=== PATIENT | female | born 1960 | race Caucasian/White ===

== ENCOUNTER 2024-07-31 09:00 | Outpatient (CLI) | payer OTHER, SELFPAY ==
--- NOTE | 2024-07-31 | IMM_PTH ---
PATHOLOGY RESULTS PATIENT: BRITTANY MONTEJO LOC: LAB U#:[id number] AGE/SX: 63/F ROOM: RE07/31/[address]: Dr. Bobo Sethi MD : 1960 BED: DIS: 07/31/2024 SPEC #: [id number] RECD: 07/31/24 15:39 STATUS: JORGE REQ #: [id number] DAVID: 07/31/24 00:[address]: Bobo Sethi DEPT: IMMUNOHISTOCHEMISTRY RECD BY: Nithin Lambert ENTERED: 07/31/24 15:40 SP TYPE: IMMUNO OTHR DR: Dr. Beatriz Mahmood MD Tissues: Neck, NOS Procedures: RCC (add) Thyroglobulin (add) NAPSIN A (add) CD45 (add) CD56 (add) CK20 (add) CK5-6 (add) CK7 (add) CK8 (add) HEP PAR (add) KI-67 (add) MAMM (add) P16 (add) P53 (add) ND (add) TTF1 (add) Vimentin (add) 34BE12 (add) Pankeratin (add) GATA3 (add) P40 (add) ER (initial) NSE (add) S-100 (add) PHYSICIAN & INSTITUTION [place] [id number] SPECIMEN INFORMATION: Tissue Source: Left neck Clinical Info: Left neck mass Specimen Number: [id number] CPT code: 93819, [id number] METHODOLOGY: Deparaffinized sections of prefer/formalin-fixed tissue or PAP/DQ stained slides are incubated with monoclonal/polyclonal antibodies/oligonucleotide probes. Localization is made via biotin free immunoperoxidase method. Appropriate controls are performed and reacted as expected. Results on target cell population are indicated in the following table: RESULTS: ANTIBODY / CLONE RESULT CELLBLOCK ER (6F11) negative ND (1E2) negative Mammaglobin (31A5) negative GATA3 (L50-823) negative AE1-3 (AE1/AE3/PCK26) positive CK7 (OV-TL12/30) negative CK8 (25zeflE10) negative CK20 (KS20.8) negative CD45 (RP2/18) negative Vimentin (V9) negative 34BE12 (34BE12) positive S-100 (4C4.9) negative CD56 (123C3.D5) negative NSE Neuron Specific Enolase negative TTF-1 (8G7G3/1) negative Napsin A (Rabbit Polyclonal) negative HepPar (OCh1E5) negative RCC (PN-15) negative Thyro (2H11+6E1) negative CK5-6 (D5 & 1684) positive P40 (BC28) positive P53 (DO-7) positive, missense type Ki-67 (30-9) positive, moderate P16 (E6H4) negative These tests were developed and their performance characteristics determined by [facility]. They may not have been cleared or approved by the [place]. Food and Drug Administration. The FDA has determined that such clearance or approval is not necessary. The above immunohistochemical/dualISH markers are ordered and reviewed by the Pathologist. 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 Case has been reviewed in consultation with Dr. Benitez who concurs with the above diagnosis. IDC:KUNAL Lujan 08/01/2024
--- NOTE | 2024-07-31 | ASPOS_PTH ---
PATHOLOGY RESULTS PATIENT: BRITTANY MONTEJO LOC: LAB U#:[id number] AGE/SX: 63/F ROOM: RE07/31/[address]: Dr. Bobo Sethi MD : 1960 BED: DIS: 07/31/2024 SPEC #: [id number] RECD: 07/31/24 13:09 STATUS: JORGE REAria #: [id number] DAVID: 07/31/24 00:[address]: Bobo Sethi DEPT: CYTOLOGY RECD BY: Alfonzo Lopez ENTERED: 07/31/24 13:09 SP TYPE: ASP HERE OTHR DR: Dr. 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 See comment. AM.mr 08/01/2024 COMMENT Immunohistochemistry ([id number]) supports the above diagnosis. Case has been reviewed in consultation with Dr. Benitez who concurs with the above diagnosis. IDC:SJ CYTOLOGY STUDY Slides are reviewed. CYTOLOGY GROSS Received is 0.2 ml of yellow-parks labeled with the patient's name, and designated Left neck mass. 6 imprints and 2 paps are made from the submitted fluid and the rest is added to CytoLyt for cell block preparation. Submitted for cytology study. AM. 07/31/2024 TC:0 CPT:97075,20645,82508,88545
--- OUTSIDE RECORDS SUMMARY | 2024-07-31 09:45 | XMS RPT_ITS | CCD ---
Author Organization [facility] Care Team Providers Care Driver Utility Worker Name Role Phone TRINO RESENDEZ Admitting Unavailable TRINO RESENDEZ Attending Unavailable TRINO RESENDEZ Primary Care Unavailable MART DAVENPORT MD Consulting Unavailable PROVIDER, UNKNOWN Consulting Unavailable PROVIDER, UNKNOWN Consulting Unavailable PROVIDER, UNKNOWN Consulting Unavailable MART DAVENPORT MD Consulting Unavailable MART DAVENPORT MD Primary Care Unavailable MART DAVENPORT MD Attending Unavailable MART DAVENPORT MD Admitting Unavailable PROVIDER, UNKNOWN Consulting Unavailable PROVIDER, UNKNOWN Consulting Unavailable PROVIDER, UNKNOWN Consulting Unavailable MART DAVENPORT MD Consulting Unavailable MART DAVENPORT MD Primary Care Unavailable MART DAVENPORT MD Attending Unavailable MART DAVENPORT MD Admitting Unavailable PROVIDER, UNKNOWN Consulting Unavailable PROVIDER, UNKNOWN Consulting Unavailable PROVIDER, UNKNOWN Consulting Unavailable MART DAVENPORT MD Consulting Unavailable JOANNE BERMANS E Primary Care Unavailable DONALD BERMAN Attending Unavailable JOANNE BERMANS E Admitting Unavailable PROVIDER, UNKNOWN Consulting Unavailable PROVIDER, UNKNOWN Consulting Unavailable PROVIDER, UNKNOWN Consulting Unavailable MART DAVENPORT MD Admitting Unavailable MART DAVENPORT MD Attending Unavailable MART DAVENPORT MD Primary Care Unavailable MART DAVENPORT MD Consulting Unavailable PROVIDER, UNKNOWN Consulting Unavailable PROVIDER, UNKNOWN Consulting Unavailable PROVIDER, UNKNOWN Consulting Unavailable TRINO RESENDEZ Admitting Unavailable TRINO RESENDEZ Attending Unavailable TRINO RESENDEZ Primary Care Unavailable MART DAVENPORT MD Consulting Unavailable PROVIDER, UNKNOWN Consulting Unavailable PROVIDER, UNKNOWN Consulting Unavailable PROVIDER, UNKNOWN Consulting Unavailable MART DAVENPORT MD Consulting Unavailable ANTONELLA, ISRA Primary Care Unavailable JOANNE BERMANS E Attending Unavailable DONALD BERMAN E Admitting Unavailable PROVIDER, UNKNOWN Consulting Unavailable PROVIDER, UNKNOWN Consulting Unavailable PROVIDER, UNKNOWN Consulting Unavailable MART DAVENPORT MD Consulting Unavailable MART DAVENPORT MD Primary Care Unavailable MART DAVENPORT MD Attending Unavailable MART DAVENPORT MD Admitting Unavailable PROVIDER, UNKNOWN Consulting Unavailable PROVIDER, UNKNOWN Consulting Unavailable PROVIDER, UNKNOWN Consulting Unavailable MART DAVENPORT MD Consulting Unavailable REID REED CNP Primary Care Unavailable REID REED CNP Attending Unavailable REID REED CNP Admitting Unavailable PROVIDER, UNKNOWN Consulting Unavailable PROVIDER, UNKNOWN Consulting Unavailable PROVIDER, UNKNOWN Consulting Unavailable DONALD BERMAN Referring Unavailable MART DAVENPORT MD Consulting Unavailable GEE NEGRON MD Primary Care Unavailabl GEE Hagan MD Attending Unavailabl e GEE NEGRON MD Admitting Unavailabl e PROVIDER, UNKNOWN Consulting Unavailable PROVIDER, UNKNOWN Consulting Unavailable PROVIDER, UNKNOWN Consulting Unavailable MART DAVENPORT MD Admitting Unavailable MART DAVENPORT MD Attending Unavailable MART DAVENPORT MD Primary Care Unavailable MATR DAVENPORT MD Consulting Unavailable PROVIDER, UNKNOWN Consulting Unavailable PROVIDER, UNKNOWN Consulting Unavailable PROVIDER, UNKNOWN Consulting Unavailable ANTONELLAJOANNE SNYDERS E Primary Care Unavailable JOANNE BERMANS E Attending Unavailable JOANNE BERMANS E Admitting Unavailable MART DAVENPORT MD Consulting Unavailable PROVIDER, UNKNOWN Consulting Unavailable PROVIDER, UNKNOWN Consulting Unavailable PROVIDER, UNKNOWN Consulting Unavailable Allergies Allergy Classification Reported Allergen(s) Allergy Type Date of Onset Reaction(s) Facility (1 source) adalimumab Drug Allergy [facility] Repository (1 source) Etanercept Drug Allergy [facility] Repository Problems Active Problems Problem Classification Problem Date Documented Da te Episodic/Chronic Disorders of lipid metabolism (1 source) Hyperlipidemia, unspecified; Translations: [Hyperlipidemia, unspecified] Onset: 05-29-2024 Chronic Headache; including migraine (3 sources) Headache; including migraine; Translations: [Headache, unspecified] Onset: 06-22-2024 Nutritional deficiencies (1 source) Vitamin D deficiency, unspecified; Translations: [Vitamin D deficiency, unspecified] Onset: 05-29-2024 Chronic Osteoarthritis (3 sources) Unspecified osteoarthritis, unspecified site; Translations: [Unspecified osteoarthritis, unspecified site] Onset: 05-29-2024 Chronic Other acquired deformities (1 source) Postural lordosis, site unspecified; Translations: [Postural lordosis, site unspecified] Onset: 02-11-2024 Chronic Other aftercare (1 source) Other senior care (current) drug therapy; Translations: [Other termite helper (current) drug therapy] Onset: 05-29-2024 Episodic Other screening for suspected conditions (not mental disorders or infectious disease) (4 sources) Other specified abnormal findings of blood chemistry; Translations: [Encounter for screening mammogram for malignant neoplasm of breast] Onset: 02-15-2024 Episodic Other skin disorders (4 sources) Localized swelling, mass and lump, neck; Translations: [Localized swelling, mass and lump, neck] Onset: 06-19-2024 Episodic Spondylosis; intervertebral disc disorders; other back problems (2 sources) Spondylosis without myelopathy or radiculopathy, cervical region; Translations: [Spondylosis without myelopathy or radiculopathy, cervical region] Onset: 02-11-2024 Chronic Past or Other Problems Problem Classification Problem Date Documented Da te Episodic/Chronic Deficiency and other anemia (3 sources) Iron deficiency anemia, unspecified; Translations: [Iron deficiency anemia, unspecified] Onset: 07-22-2023 Episodic Spondylosis; intervertebral disc disorders; other back problems (1 source) Spinal stenosis, cervical region; Translations: [Spinal stenosis, cervical region] Onset: 02-11-2024 Episodic Results Test Name Value Interpretation Reference Range Facil ity BMP with eGFRon 07-10-2024 AGE 63 years Normal [facility] Comment on above: Performed By: #### 2 [id number] #### [facility],[address] [place] [address] Anion gap [Moles/Vol] 10 mmol/L Normal 10 - 20 [facility] Comment on above: Performed By: #### 2 04754 #### [facility],[address] [place], [place] [id number] BMP with eGFR Normal [facility] Comment on above: Result Comment: BASI C METABOLIC PANEL Performed By: #### 2 36678 #### [facility],[address] [place], [place] [phone] Calcium [Mass/Vol] 8.4 mg/dL Low 8.5 - 10.1 [facility] Comment on above: Performed By: #### 2 92136 #### [facility],[address] [place], [place] [phone] Chloride [Moles/Vol] 101 mmol/L Normal 98 - 107 [facility] Comment on above: Performed By: #### 2 88263 #### [facility],[address] [place] [address] 22050 CO2 [Moles/Vol] 29.5 mmol/L Normal 21.0 - 32.0 [facility] Comment on above: Performed By: #### 2 70212 #### [facility],[address] [place], [place] [phone] Creatinine [Mass/Vol] 0.73 mg/dL Normal 0.55 - 1.02 [facility] Comment on above: Performed By: #### 2 00356 #### [facility],[address] [place] [address] GFR/1.73 sq M.predicted among non-blacks MDRD (S/P/Bld) [Vol rate/Area] mL/min/{1.73_m2} Normal 60 - 999 [facility] Comment on above: Performed By: #### 2 17240 #### [facility],[address] [place] [address] Result Comment: ACCO RDING TO THE NATIONAL KIDNEY DISEASE EDUCATION PROGRAM(NKDE), A NORMAL eGFR IS A VALUE GREATER THAN OR EQUAL TO 60 ML/MIN/1.73 SQ METERS. CHRONIC KIDNEY DISEASE: <60mL/MIN/1.73 SQ METERS KIDNEY FAILURE: <15mL/MIN/1.73 SQ METERS THIS TEST SHOULD ONLY BE USED FOR PATIENTS 18 YEARS OF AGE AND OLDER. Glucose [Mass/Vol] 86 mg/dL Normal 74 - 106 [facility] Comment on above: Performed By: #### 2 27726 #### [facility],[address] [place], [place] [phone] Potassium [Moles/Vol] 4.4 mmol/L Normal 3.5 - 5.1 [facility] Comment on above: Performed By: #### 2 45881 #### [facility],[address] [place] [address] 75189 Sodium [Moles/Vol] 136 mmol/L Normal 136 - 145 [facility] Comment on above: Performed By: #### 2 73894 #### [facility],[address] [place] [address] 73216 Urea nitrogen [Mass/Vol] 11 mg/dL Normal 7 - 18 [facility] Comment on above: Performed By: #### 2 84615 #### [facility],[address] [place] [address] NECK W/WO CONTRAST 06-12 CT NECK W/WO CONTRAST [place] [address] Patient: BRITTANY MONTEJO Phone#: : 1960 Age: 63 Gender: F Pt. Type: Out Account: [id number] Location: [place] [facility] Ordering: DONALD BERMAN Exam Date: 06/30/2024/13:47 Family Phys: MART DAVENPORT Charge Code: 669294 Physician: [place] Order #: [id number] Dose#: 9.40 mGy PROCEDURE: CT NECK WITH AND WITHOUT CONTRAST COMPARISON: None. INDICATIONS: Neck mass. TECHNIQUE: After obtaining the patient's consent, CT images were created without and with non- ionic intravenous contrast material. All CT scans at this facility use dose modulation, iterative reconstruction, and/or weight based dosing when appropriate to reduce radiation dose to as low as reasonably achievable. IV CONTRAST: Omnipaque 350,60ml TOTAL DOSE: 9.40 CTDIvol(mGy) FINDINGS: Dental amalgam streak artifact limits evaluation at the involved levels. NASOPHARYNX: Normal. Fossae of Rosenmuller and torus tubarius are symmetric. ORAL CAVITY: Dental amalgam streak artifact limits evaluation, visualized portion is unremarkable. OROPHARYNX: Normal. Faucial and lingual tonsils are symmetric. HYPOPHARYNX: Normal. No mass or other visible lesion. LARYNX: Normal. The vocal cords are symmetric and without mass. SINUSES: Normal. Limited views show no significant fluid or mucosal thickening. NECK GLANDS: Two left thyroid nodules measuring 0.5 cm. The parotid and submandibular glands are unremarkable. LYMPH NODES: There is a left level 5B irregular lymph node measuring 1.4 x 1.6 x 2.3 cm, series 6, image 52. There cluster of small left supraclavicular lymph nodes, series 33, image 34. The largest lymph node measures 0.7 cm. SKULL BASE: Normal. Foramina are symmetric without bony erosion. VASCULATURE: There are atherosclerotic calcifications of the carotid bifurcations. The vertebral artery is dominant. BONES: Reversal of the normal cervical lordosis. Disc height loss at C5-6 and C6-7. Facet fusion at C2 through C5. Degenerative changes at the atlantoaxial interval. OTHER: Normal. No additional imaging findings. CONCLUSION: Continued Report - Page 2 of 2 Patient: BRITTANY MONTEJO. Phone#: : 1960 Age: 63 Gender: F Pt. Type: Out Account: [id number] Location: 052 Ordering: DONALD BERMAN Exam Date: 06/30/2024/13:47 Family Phys: MART DAVENPORT Charge Code: 551120 Physician: [place] Order #: [id number] Dose#: 9.40 mGy 1. Abnormal level 5B lymph node. In a patient with a history of cancer this is concerning for metastatic disease. Recommend further workup. Dictated by: Hue Jimenez MD on 06/30/2024 at 19:15 Approved by: Hue Jimenez MD on 06/30/2024 at 19:29 Normal [facility] MR MRI BRAIN W/WO CONTRASTon 06-22-2024 MR MRI BRAIN W/WO CONTRAST [place] [address] Patient: BRITTANY MONTEJO Phone#: : 1960 Age: 63 Gender: F Pt. Type: Out Account: [id number] Location: 052 Ordering: MART DAVENPORT Exam Date: 06/22/2024/10:36 Family Phys: Charge Code: [id number] Physician: [place] Order #: [id number] Dose#: PROCEDURE: MRI BRAIN WITH AND WITHOUT CONTRAST COMPARISON: None. INDICATIONS: MIXED ALLISON TECHNIQUE: A variety of imaging planes and parameters were utilized for visualization of suspected pathology. Images were performed without and with gadolinium contrast. FINDINGS: CEREBRUM: Few scattered periventricular foci of abnormal signal are seen on FLAIR imaging. These findings are nonspecific and may be on the basis of previous infectious or inflammatory process or demyelinating disease. The number foci are greater than expected for patient age. CEREBELLUM: No edema, hemorrhage, mass, acute infarction, or inappropriate atrophy. BRAINSTEM: No edema, hemorrhage, mass, acute infarction, or inappropriate atrophy. CSF SPACES: Ventricles, cisterns, and sulci are appropriate for age. No hydrocephalus, subarachnoid hemorrhage, or mass. SKULL: No mass or other significant visible lesion. SINUSES: Limited views demonstrate no significant mucosal thickening or fluid. ORBITS: Limited views are unremarkable. OTHER: No abnormal meningeal or parenchymal enhancement. CONCLUSION: 1. Scattered foci of abnormal signal on FLAIR imaging and are nonspecific. Number foci however are greater than expected for patient age. Correlate with possible demyelinating process. Dictated by: Janis Goldman MD on 06/22/2024 at 14:51 Approved by: Janis Goldman MD on 06/22/2024 at 14:59 Normal [facility] CREATININEon 06-19-2024 Creatinine [Mass/Vol] 0.95 mg/dL Normal 0.55 - 1.02 [facility] Comment on above: Performed By: #### 2 89091 #### [facility],[address] [place] [address] US SOFT TISSUE NECK/HEADon 0 06-19-2024 SOFT TISSUE NECK/HEAD [place] [address] Patient: BRITTANY MONTEJO Phone#: : 1960 Age: 63 Gender: F Pt. Type: Out Account: [id number] Location: [facility] Ordering: DONALD BERMAN Exam Date: 06/19/2024/15:04 Family Phys: MART DAVENPORT Charge Code: [id number] Physician: GEE NEGRON [place] Order #: [id number] Dose#: PROCEDURE: SOFT TISSUE NECK/HEAD COMPARISON: [facility], MR, CERVICAL SPINE W/O CON, 02/11/2024, 10:58. INDICATIONS: Left neck mass TECHNIQUE: Sonography was performed of the clinically requested area of interest. FINDINGS: REGION IMAGED: Neck MASSES: Bilobed versus 2 juxtaposed nodules are present at the site of palpable abnormality. Total dimension is 17 by 14 x 13 millimeters. Mass is hypoattenuating with through transmission. Scattered low-level echoes are present within the mass. Possibility of necrotic node versus cystic lesion with debris is raised. There is no significant associated hypervascularity. There are a few nonspecific lymph nodes identified. Further evaluation by CT without and with is recommended. FLUID COLLECTIONS: None. No abnormal fluid collection. OTHER: Negative. CONCLUSION: 1. BILOBED VERSUS 2 JUXTAPOSED HYPOECHOIC MASS AT THE LEFT NECK BASE IS PRESENT. POSSIBILITY OF NECROTIC MASS VERSUS CYSTIC MASS WITH DEBRIS IS RAISED. FURTHER EVALUATION BY CT WITHOUT AND WITH CONTRAST IS RECOMMENDED. Dictated by: Janis Goldman MD on 06/19/2024 at 17:15 Approved by: Janis Goldman MD on 06/19/2024 at 17:37 Normal [facility] CBC + DIFFon 05-29-2024 Baso # 0.03 x10EE3/UL Normal 0.00 - 0.10 [facility] [facility] Comment on above: Performed By: #### 2 14079 #### [facility],[address] [place] [address] Basophils/100 WBC (Bld) 0.1 % Normal 0.0 - 2.0 [facility] Comment on above: Performed By: #### 2 75596 #### [place] [address] CBC + DIFF Normal [facility] Comment on above: Result Comment: CBC- COMPLETE BLOOD COUNT Performed By: #### 2 29352 #### [place] [address] CELL COUNT 100 Normal [facility] Comment on above: Performed By: #### 2 32331 #### [facility],[address] [place] [address]806 EO # 0.07 x10EE3/UL Normal 0.00 - 0.50 [facility] Comment on above: Performed By: #### 2 22192 #### [facility],[address] [place], [place] [phone] Eosinophils/100 WBC (Bld) 0.3 % Normal 0.0 - 7.0 [facility] Comment on above: Performed By: #### 2 66791 #### [facility],[address] [place] [address] Erythrocyte distribution width (RBC) [Ratio] 15.8 % High 12.0 - 15.6 [facility] Comment on above: Performed By: #### 2 52401 #### [facility],[address] [place] [address] Hematocrit (Bld) [Volume fraction] 37.5 % Normal 34.0 - 46.0 [facility] Comment on above: Performed By: #### 2 29385 #### [facility],[address] [place], [place] [phone] Hemoglobin (Bld) [Mass/Vol] 11.9 g/dL Low 12.0 - 16.0 [facility] Comment on above: Performed By: #### 2 36574 #### [facility],[address] [place], [place] [phone] Lymph # 1.04 x10EE3/UL Normal 0.80 - 2.80 [facility] Comment on above: Performed By: #### 2 82030 #### [facility],[address] [place], [place] [phone] Lymphocytes/100 WBC (Bld) 4.3 % Low 20.0 - 45.0 [facility] Comment on above: Performed By: #### 2 15473 #### [facility],[address] [place] [address] Lymphocytes/100 WBC (Bld) 3 % Low 20 - 45 [facility] Comment on above: Performed By: #### 2 97018 #### [facility],[address] [place] [address] MANUAL DIFF SEE BELOW Normal [facility] Comment on above: Performed By: #### 2 39630 #### [facility],[address] [place] [address] MCH (RBC) [Entitic mass] 26 pg Low 27 - 33 [facility] Comment on above: Performed By: #### 2 63005 #### [facility],[address] [place] [address] MCHC 32 X10 3 Normal 32 - 36 [facility] Comment on above: Performed By: #### 2 56304 #### [facility],[address] [place] [address] MCV (RBC) [Entitic vol] 81 fL Normal 80 - 99 [facility] Comment on above: Performed By: #### 2 22650 #### [facility],[address] [place] [address] [place] # 0.32 x10EE3/UL Normal 0.20 - 1.00 [facility] Comment on above: Performed By: #### 2 70031 #### [facility],[address] [place] [address] MONOS 1 % Normal 0 - 10 [facility] Comment on above: Performed By: #### 2 87582 #### [facility],[address] [place] [address] MONOS % 1.3 % Normal 0.0 - 10.0 [facility] Comment on above: Performed By: #### 2 18736 #### [facility],[address] [place] [address] Morphology Eduar (Bld) [Interp] REVIEWED Normal [facility] Comment on above: Performed By: #### 2 03483 #### [facility],[address] [place] [address] 62738 Neut # 22.67 x10EE3/UL High 1.50 - 7.10 [facility] Comment on above: Performed By: #### 2 81082 #### [facility],[address] [place] [address] 78323 Neutrophils/100 WBC (Bld) 93.9 % High 46.0 - 76.0 [facility] Comment on above: Performed By: #### 2 00631 #### [facility],[address] [place] [address] 04435 PLATELET 352 x10EE3/UL Normal 150 - 450 [facility] Comment on above: Performed By: #### 2 05203 #### [facility],[address] [place] [address] 25870 Platelet mean volume (Bld) [Entitic vol] 7.8 fL Normal 6.6 - 10.5 [facility] Comment on above: Result Comment: AUTO MATED DIFFERENTIAL Performed By: #### 2 06971 #### [facility],[address] [place] [address] 71721 RBC 4.65 x 10EE6/UL Normal 4.10 - 5.30 [facility] Comment on above: Performed By: #### 2 85807 #### [facility],[address] [place] [address] 23090 SEGS 96 % High 46 - 76 [facility] Comment on above: Performed By: #### 2 74392 #### [facility],[address] [place] [address] 69243 WBC 24.1 x 10EE3/UL High 4.5 - 10.8 [facility] Comment on above: Performed By: #### 2 86045 #### [facility],[address] [place] [address] 40830 CMP with eGFRon 05-29-2024 AGE 63 years Normal [facility] Comment on above: Performed By: #### 2 04571 #### [facility],[address] [place] [address] 00108 Albumin [Mass/Vol] 2.8 g/dL Low 3.4 - 5.0 [facility] Comment on above: Performed By: #### 2 40998 #### [facility],[address] [place] [address] 42267 Albumin/Globulin [Mass ratio] 0.8 {ratio} Low 0.9 - 1.6 [facility] Comment on above: Performed By: #### 2 27820 #### [facility],[address] [place] [address] 52432 ALK PHOS 99 U/L Normal 46 - 116 [facility] Comment on above: Performed By: #### 2 74314 #### [facility],[address] [place] [address] 61958 ALT [Catalytic activity/Vol] 14 U/L Low 16 - 63 [facility] Comment on above: Performed By: #### 2 17675 #### [facility],[address] [place] [address] 72822 Anion gap [Moles/Vol] 12 mmol/L Normal 10 - 20 [facility] Comment on above: Performed By: #### 2 05392 #### [facility],[address] [place] [address] 55549 AST [Catalytic activity/Vol] 23 U/L Normal 13 - 39 [facility] Comment on above: Performed By: #### 2 29962 #### [facility],[address] [place] [address] 09782 B/C RATIO 18 ratio Normal 0 - 30 [facility] Comment on above: Performed By: #### 2 12003 #### [facility],[address] [place] [address] 71743 Bilirubin [Mass/Vol] 0.3 mg/dL Normal 0.2 - 1.0 [facility] Comment on above: Performed By: #### 2 89411 #### [facility],[address] [place], [place] [phone] Calcium [Mass/Vol] 8.8 mg/dL Normal 8.5 - 10.1 [facility] Comment on above: Performed By: #### 2 27995 #### [facility],[address] [place], [place] [phone] Chloride [Moles/Vol] 100 mmol/L Normal 98 - 107 [facility] Comment on above: Performed By: #### 2 01587 #### [facility],[address] [place], [place] [phone] CMP with eGFR Normal [facility] Comment on above: Result Comment: COMP REHENSIVE METABOLIC PANEL Performed By: #### 2 71863 #### [facility],[address] [place] [address] CO2 [Moles/Vol] 29.6 mmol/L Normal 21.0 - 32.0 [facility] Comment on above: Performed By: #### 2 26685 #### [facility],[address] [place], [place] [phone] Creatinine [Mass/Vol] 0.73 mg/dL Normal 0.55 - 1.02 [facility] Comment on above: Performed By: #### 2 51666 #### [facility],[address] [place] [address] GFR/1.73 sq M.predicted among non-blacks MDRD (S/P/Bld) [Vol rate/Area] mL/min/{1.73_m2} Normal 60 - 999 [facility] Comment on above: Performed By: #### 2 04358 #### [facility],[address] [place] [address] Result Comment: ACCO RDING TO THE NATIONAL KIDNEY DISEASE EDUCATION PROGRAM(NKDE), A NORMAL eGFR IS A VALUE GREATER THAN OR EQUAL TO 60 ML/MIN/1.73 SQ METERS. CHRONIC KIDNEY DISEASE: <60mL/MIN/1.73 SQ METERS KIDNEY FAILURE: <15mL/MIN/1.73 SQ METERS THIS TEST SHOULD ONLY BE USED FOR PATIENTS 18 YEARS OF AGE AND OLDER. Globulin (S) [Mass/Vol] 3.6 g/dL Normal 1.5 - 3.8 [facility] Comment on above: Performed By: #### 2 94122 #### [facility],[address] [place] [address] 63824 Glucose [Mass/Vol] 99 mg/dL Normal 74 - 106 [facility] Comment on above: Performed By: #### 2 66925 #### [facility],[address] [place] [address] 52608 Potassium [Moles/Vol] 3.8 mmol/L Normal 3.5 - 5.1 [facility] Comment on above: Performed By: #### 2 65333 #### [facility],[address] [place] [address] 27009 Protein [Mass/Vol] 6.4 g/dL Normal 6.4 - 8.2 [facility] Comment on above: Performed By: #### 2 65980 #### [facility],[address] [place] [address] 23908 Sodium [Moles/Vol] 138 mmol/L Normal 136 - 145 [facility] Comment on above: Performed By: #### 2 74339 #### [facility],[address] [place] [address] 62147 Urea nitrogen [Mass/Vol] 13 mg/dL Normal 7 - 18 [facility] Comment on above: Performed By: #### 2 20022 #### [facility],[address] [place] [address] 28921 HEMOGLOBIN A1C (POM)on 05-29 Glucose [Mass/Vol] 116.9 mg/dL High 0.0 - 0.0 [facility] Comment on above: Result Comment: BLDo HEMOGLOBIN A1C REFERENCE RANGESBLDo Suggested Diagnosis HbA1c(%) HbA1C (mmol/mol Diabetic >/=6.5 >/=48 Prediabetes 5.7 - 6.4 39 - 47 Normal <5.7 <39 Performed By: #### 2 94766 #### [facility],[address] [place] [address] 79359 HbA1c (Bld) [Mass fraction] 5.7 % Normal 0.0 - 6.5 [facility] Comment on above: Performed By: #### 2 87327 #### [facility],[address] [place] [address] 33783 LIPID PROFILEon 05-29-2024 Cholesterol [Mass/Vol] 146 mg/dL Normal 0 - 240 [facility] Comment on above: Performed By: #### 2 72405 #### [facility],[address] [place] [address] 51539 Cholesterol in HDL [Mass/Vol] 34 mg/dL Low 40 - 60 [facility] Comment on above: Performed By: #### 2 16605 #### [facility],[address] [place] [address] 58618 Cholesterol in LDL [Mass/Vol] 95 mg/dL Normal 0 - 129 [facility] Comment on above: Performed By: #### 2 45254 #### [facility],[address] [place] [address] 63023 Cholesterol.total/C holesterol in HDL [Mass ratio] 4.3 {ratio} Normal 0.0 - 5.0 [facility] Comment on above: Performed By: #### 2 84785 #### [facility],[address] [place] [address] 45593 Lipid 1996 panel Normal [facility] Comment on above: Result Comment: LIPI D PROFILE Performed By: #### 2 14148 #### [facility],[address] [place] [address] 48654 Triglyceride [Mass/Vol] 85 mg/dL Normal 0 - 150 [facility] Comment on above: Performed By: #### 2 02543 #### [facility],[address] [place] [address] 09928 MAGNESIUMon 05-29-2024 Magnesium [Mass/Vol] 2.1 mg/dL Normal 1.8 - 2.4 [facility] Comment on above: Performed By: #### 2 98718 #### [facility],[address] [place] [address] T4-FREE (FREE THYROXINE)on 0 05-29-2024 Free T4 [Mass/Vol] 1.12 ng/dL Normal 0.76 - 1.46 [facility] Comment on above: Result Comment: P otential of falsely elevated results when biotin concentrations are > 10 ng/mL. Performed By: #### 2 34902 #### [facility],[address] [place], [place] [address] TSHon 05-29-2024 TSH Qn 2.32 m[IU]/L Normal 0.35 - 3.74 [facility] Comment on above: Performed By: #### 2 13925 #### [facility],[address] [place] [address] 00307 URINALYSISon 05-29-2024 Amorphous NONE Normal [facility] Comment on above: Performed By: #### 2 95698 #### [facility],[address] [place] [address] 14102 Bacteria 2+ Normal [facility] Comment on above: Performed By: #### 2 65062 #### [facility],[address] [place] [address] 48164 Bilirubin Ql (U) Negative Normal NORMAL: NEGATIVE [facility] Comment on above: Performed By: #### 2 17484 #### [facility],[address] [place] [address] 51526 Casts NONE Normal [facility] Comment on above: Performed By: #### 2 74964 #### [facility],[address] [place] [address] 80889 Clarity (U) clear Normal NORMAL: CLEAR [facility] Comment on above: Performed By: #### 2 06948 #### [facility],[address] [place] [address] 65263 Color (U) yellow Normal NORMAL: YELLOW [facility] Comment on above: Performed By: #### 2 03014 #### [facility],[address] [place] [address] 74773 Crystals LM Nom (Urine sed) NONE Normal [facility] Comment on above: Performed By: #### 2 76469 #### [facility],[address] [place] [address] 23203 Epi Cells MODERATE Normal [facility] Comment on above: Performed By: #### 2 48813 #### [facility],[address] [place] [address] 27494 Glucose Ql (U) NORM Normal NORMAL: NORMAL [facility] Comment on above: Performed By: #### 2 91160 #### [facility],[address] [place] [address] 76955 Hemoglobin Ql (U) 10 Abnormal NORMAL: NEGATIVE [facility] Comment on above: Performed By: #### 2 93506 #### [facility],[address] [place] [address] 25384 Ketone Negative Normal NORMAL: NEGATIVE [facility] Comment on above: Performed By: #### 2 85286 #### [facility],[address] [place] [address] 30500 Leukocytes Negative Normal NORMAL: NEGATIVE [facility] Comment on above: Performed By: #### 2 63899 #### [facility],[address] [place] [address] 71460 Mucous NONE Normal [facility] Comment on above: Performed By: #### 2 42152 #### [facility],[address] [place] [address] 42329 Nitrite Ql (U) Negative Normal NORMAL: NEGATIVE [facility] Comment on above: Performed By: #### 2 84171 #### [facility],[address] [place] [address] 25531 pH (U) 6 [pH] Normal NORMAL: 5.0-8.0 [facility] Comment on above: Performed By: #### 2 39583 #### [facility],[address] [place] [address] 00227 Protein Ql (U) 15 Abnormal NORMAL: NEGATIVE [facility] Comment on above: Performed By: #### 2 06769 #### [facility],[address] [place] [address] 47781 Rbc 0-5 Normal 0-3/hpf [facility] Comment on above: Performed By: #### 2 91281 #### [facility],[address] [place] [address] Sp [place] 1.010 Normal NORMAL: 1.010-1.030 [facility] Comment on above: Performed By: #### 2 48858 #### [facility],[address] [place] [address] 50834 Specimen Type R Normal [facility] Comment on above: Performed By: #### 2 04441 #### [facility],[address] [place] [address] 31074 Urinalysis dipstick W Reflex Microscopic panel (U) SEE BELOW Normal [facility] Comment on above: Result Comment: MICR OSCOPIC Performed By: #### 2 51955 #### [facility],[address] [place] [address] 19323 Urobilinog NORM Normal NORMAL: NORMAL [facility] Comment on above: Performed By: #### 2 53211 #### [facility],[address] [place] [address] 17456 Wbc 1-5 Normal 0-5/hpf [facility] Comment on above: Performed By: #### 2 95233 #### [facility],[address] [place] [address] 54077 Yeast NONE Normal [facility] Comment on above: Performed By: #### 2 20205 #### [facility],[address] [place] [address] 49950 VITAMIN B-12on 05-29-2024 Cobalamin (Vitamin B12) [Mass/Vol] 1797 pg/mL High 193 - 986 [facility] Comment on above: Performed By: #### 2 64765 #### [facility],[address] [place] [address] 54006 VITAMIN D, 25 HYDROXYon 05-11 VitD 26.50 ng/mL Low 30.00 - 100 [facility] Comment on above: Result Comment: 25-O HD3 indicates both endogenous production and supplementation. 25-OHD2 is an indicator of exogenous sources, such as diet or supplementation. Therapy is based on measurement of Total 25-OHD, with levels <20 ng/mL indicative of Vitamin D deficiency, while levels between 20 ng/mL and 30 ng/mL suggest insufficiency. Optimal levels are >=30ng/mL. Vitamin D, 25-OH D3 Not Established Vitamin D, 25-OH D2 Not Established Performed By: #### 2 96881 #### [facility],[address] [place] [address] 04778 C-REACTIVE PROTEINon 024 CRP 7.48 mg/dl High 0.00 - 0.90 [facility] Comment on above: Performed By: #### 2 90540 #### [facility],[address] [place] [address] 18641 CBC + DIFFon 05-09-2024 Baso # 0.04 x10EE3/UL Normal 0.00 - 0.10 [facility] Comment on above: Performed By: #### 2 11193 #### [facility],[address] [place] [address] 96337 Basophils/100 WBC (Bld) 0.2 % Normal 0.0 - 2.0 [facility] Comment on above: Performed By: #### 2 86381 #### [facility],[address] [place] [address] 19924 CBC + DIFF Normal [facility] Comment on above: Result Comment: CBC- COMPLETE BLOOD COUNT Performed By: #### 2 65084 #### [facility],[address] [place] [address] 50723 EO # 0.09 x10EE3/UL Normal 0.00 - 0.50 [facility] Comment on above: Performed By: #### 2 15049 #### [facility],[address] [place] [address] 14730 Eosinophils/100 WBC (Bld) 0.5 % Normal 0.0 - 7.0 [facility] Comment on above: Performed By: #### 2 82795 #### [facility],[address] [place] [address] Erythrocyte distribution width (RBC) [Ratio] 16.2 % High 12.0 - 15.6 [facility] Comment on above: Performed By: #### 2 13257 #### [facility],[address] [place], [place] [address] Hematocrit (Bld) [Volume fraction] 41.0 % Normal 34.0 - 46.0 [facility] Comment on above: Performed By: #### 2 27381 #### [facility],[address] [place] [address] 67047 Hemoglobin (Bld) [Mass/Vol] 13.3 g/dL Normal 12.0 - 16.0 [facility] Comment on above: Performed By: #### 2 67751 #### [facility],[address] [place] [address] 08759 Lymph # 1.50 x10EE3/UL Normal 0.80 - 2.80 [facility] Comment on above: Performed By: #### 2 17557 #### [facility],[address] [place] [address] 58535 Lymphocytes/100 WBC (Bld) 8.0 % Low 20.0 - 45.0 [facility] Comment on above: Performed By: #### 2 24729 #### [facility],[address] [place] [address] MANUAL DIFF N/A Normal [facility] Comment on above: Performed By: #### 2 14549 #### [facility],[address] [place] [address] MCH (RBC) [Entitic mass] 26 pg Low 27 - 33 [facility] Comment on above: Performed By: #### 2 27306 #### [facility],[address] [place] [address] MCHC 32 X10 3 Normal 32 - 36 [facility] Comment on above: Performed By: #### 2 23029 #### [place] [address] MCV (RBC) [Entitic vol] 81 fL Normal 80 - 99 [facility] Comment on above: Performed By: #### 2 06852 #### [place] [address] [place] # 0.19 x10EE3/UL Low 0.20 - 1.00 [facility] Comment on above: Performed By: #### 2 39207 #### [facility],[address] [place] [address] MONOS % 1.0 % Normal 0.0 - 10.0 [facility] Comment on above: Performed By: #### 2 56430 #### [address] [address] Morphology Eduar (Bld) [Interp] N/A Normal [facility] Comment on above: Performed By: #### 2 06531 #### [facility],[address] [place] [address] Neut # 17.09 x10EE3/UL High 1.50 - 7.10 [facility] Comment on above: Performed By: #### 2 36611 #### [facility],[address] [place] [address] 59319 Neutrophils/100 WBC (Bld) 90.3 % High 46.0 - 76.0 [facility] Comment on above: Performed By: #### 2 97256 #### [facility],[address] [place] [address] 05138 PLATELET 376 x10EE3/UL Normal 150 - 450 [facility] Comment on above: Performed By: #### 2 31402 #### [facility],[address] [place] [address] 77059 Platelet mean volume (Bld) [Entitic vol] 7.9 fL Normal 6.6 - 10.5 [facility] Comment on above: Result Comment: AUTO MATED DIFFERENTIAL Performed By: #### 2 71312 #### [facility],[address] [place], [place] [address] RBC 5.07 x 10EE6/UL Normal 4.10 - 5.30 [facility] Comment on above: Performed By: #### 2 46021 #### [facility],[address] [place] [address] 86360 WBC 18.9 x 10EE3/UL High 4.5 - 10.8 [facility] Comment on above: Performed By: #### 2 54917 #### [facility],[address] [place] [address] 86501 SEDRATEon 05-09-2024 SEDRATE 28 mm/hr Normal 0 - 30 [facility] Comment on above: Performed By: #### 2 86283 #### [facility],[address] [place] [address] 21243 3D MAMM BILAT SCREENon 02-14 3D MAMM BILAT SCREEN [place] [address] Patient: BRITTANY MONTEJO Phone#: : 1960 Age: 63 Gender: F Pt. Type: Out Account: [id number] Location: 052 Ordering: MART ISSAC Exam Date: 02/15/2024/9:02 Family Phys: Charge Code: [id number] Physician: [place] Order #: [id number] Dose#: PROCEDURE: BILATERAL SCREENING BREAST TOMOSYNTHESIS MAMMOGRAM WITH CAD COMPARISON: [facility], BILAT SCREENING, 12/23/2020, 15:30. [facility], 3D BILAT SCREEN, 01/12/2022, 15:15. INDICATIONS: Screening BREAST COMPOSITION: Extremely dense, which lowers the sensitivity of mammography. FINDINGS: DIAGNOSTIC CATEGORY 1--NEGATIVE NO CHANGE FROM COMPARISON ASSESSMENT. RIGHT BREAST: No significant suspicious finding. No significant change has occurred. LEFT BREAST: No significant suspicious finding. No significant change has occurred. Dense vascular calcification is present bilaterally. RECOMMENDATIONS: ROUTINE MAMMOGRAM AND CLINICAL EVALUATION IN 12 MONTHS. PLEASE NOTE: A NORMAL MAMMOGRAM DOES NOT EXCLUDE THE POSSIBILITY OF BREAST CANCER. A CLINICALLY SUSPICIOUS PALPABLE LUMP SHOULD BE BIOPSIED. THIS FACILITY UTILIZES A REMINDER SYSTEM TO ENSURE THAT ALL PATIENTS RECEIVE REMINDER LETTERS FOR APPOINTMENTS. THIS INCLUDES REMINDERS FOR ROUTINE MAMMOGRAMS, DIAGNOSITC MAMMOGRAMS, OR OTHER BREAST IMAGING INTERVENTIONS WHEN APPROPRIATE. THIS PATIENT WILL BE PLACED IN THE APPROPRIATE REMINDER SYSTEM. Dictated by: Janis Goldman MD on 02/15/2024 at 17:22 Approved by: Janis Goldman MD on 02/15/2024 at 17:25 Normal [facility] CERVICAL SP AP LAT, 3 VIEWS OR LESSon 02-11-2024 CERVICAL SP AP LAT, 3 VIEWS OR LESS [place] [address] Patient: BRITTANY MONTEJO Phone#: : 1960 Age: 63 Gender: F Pt. Type: Out Account: [id number] Location: 052 Ordering: TRINO RESENDEZ Exam Date: 02/11/2024/10:37 Family Phys: MART DAVENPORT Charge Code: [id number] Physician: [place] Order #: [id number] Dose#: PROCEDURE: X-RAY CERVICAL SPINE AP/LAT 2 VIEWS COMPARISON: [facility], XR, CERVICAL SP AP LAT OR 2V, 01/28/2024, 12:18. INDICATIONS: Cervical spondylosis. FINDINGS: BONES: There is straightening of the normal cervical lordosis. Multilevel degenerative changes present. DISC SPACES: Disc space narrowing is present at the C5-6 C6-7 and C7-T1 levels. PARASPINOUS: Negative. No paraspinous abnormality is seen. OTHER: Negative. CONCLUSION: 1. Multilevel degenerative change. There is no evidence of subluxation. Dictated by: Janis Goldman MD on 02/11/2024 at 11:58 Approved by: Janis Goldman MD on 02/11/2024 at 12:07 Normal [facility] MR CERVICAL SP WO CONTRASTon 02-11-2024 MR CERVICAL SP WO CONTRAST [place] [address] Patient: BRITTANY MONTEJO Phone#: : 1960 Age: 63 Gender: F Pt. Type: Out Account: [id number] Location: [facility] Ordering: TRINO RESENDEZ Exam Date: 02/11/2024/10:58 Family Phys: MART DAVENPORT Charge Code: [id number] Physician: [place] Order #: [id number] Dose#: PROCEDURE: MRI CERVICAL SPINE WITHOUT CONTRAST COMPARISON: None. INDICATIONS: Spondylosis TECHNIQUE: A variety of imaging planes and parameters were utilized for visualization of suspected pathology. FINDINGS: CRANIOCERVICAL AREA: Normal foramen magnum with no Chiari malformation. PARASPINAL AREA: Normal with no visible mass. BONES: There is straightening of the normal cervical lordosis. CORD: Normal caliber, contour, and signal intensity. CERVICAL DISC LEVELS: C2-C3: No significant disc/facet abnormality, spinal stenosis, or foraminal stenosis. C3-C4: There is bony hypertrophy at the articular facettes. There is mild bilateral foraminal narrowing. C4-C5: Bony hypertrophy is present at the articular facettes. There is moderate to severe narrowing of the right neural foramen. There is moderate narrowing of the left neural foramen. The spinal canal is patent. C5-C6: Bony hypertrophy is present the articular facettes. Endplate osteophyte is present. There is mild to moderate narrowing the right neural foramen. There is severe narrowing of the left neural foramen. Disc space narrowing is present. Broad-based central bulging is present posteriorly with impression on the thecal sac. C6-C7: Osteophytes are present. Bony hypertrophy is present. There is severe narrowing of the foramina bilaterally. C7-T1: No significant disc/facet abnormality, spinal stenosis, or foraminal stenosis. CONCLUSION: 1. There is straightening of the normal cervical lordosis. 2. Multilevel degenerative changes present. Right-sided foraminal impingement is most marked at C4-5 and C6-7. 3. Left-sided foraminal narrowing is most marked at C5-6 and C6-7. Dictated by: Janis Goldman MD on 02/14/2024 at 19:34 Continued Report - Page 2 of 2 Patient: BRITTANY MONTEJO Phone#: : 1960 Age: 63 Gender: F Pt. Type: Out Account: [id number] Location: 052 Ordering: TRINO RESENDEZ Exam Date: 02/11/2024/10:58 Family Phys: MART DAVENPORT Charge Code: [id number] Physician: [place] Order #: [id number] Dose#: Approved by: Janis Goldman MD on 02/14/2024 at 19:41 Normal [facility] CERVICAL SP AP LAT, 3 VIEWS OR LESSon 01-28-2024 CERVICAL SP AP LAT, 3 VIEWS OR LESS [place] [address] Patient: GUSTABO BRITTANY A. Phone#: : 1960 Age: 63 Gender: F Pt. Type: Out Account: [id number] Location: 052 Ordering: TRINO RESENDEZ Exam Date: 01/28/2024/12:18 Family Phys: MART DAVENPORT Charge Code: [id number] Physician: [place] Order #: [id number] Dose#: PROCEDURE: X-RAY CERVICAL SPINE AP/LAT 2 VIEWS COMPARISON: None. INDICATIONS: Rheumatoid arthritis FINDINGS: BONES: There is straightening of the normal cervical lordosis. DISC SPACES: Disc space narrowing is present at multiple levels. PARASPINOUS: Negative. No paraspinous abnormality is seen. OTHER: Negative. CONCLUSION: 1. Multilevel degenerative change. There is no evidence of acute fracture or subluxation. Dictated by: Janis Goldman MD on 01/28/2024 at 17:22 Approved by: Janis Goldman MD on 01/28/2024 at 17:24 Normal [facility] DORSAL SPINE 2 VIEWSon 01-27 DORSAL SPINE [address] [address] Patient: BRITTANY MONTEJO Phone#: : 1960 Age: 63 Gender: F Pt. Type: Out Account: [id number] Location: [facility] Ordering: TRINO RESENDEZ Exam Date: 01/28/2024/12:26 Family Phys: MART DAIGLEFRED Charge Code: [id number] Physician: [place] Order #: [id number] Dose#: PROCEDURE: X-RAY DORSAL SPINE 2 VIEWS COMPARISON: None. INDICATIONS: Rheumatoid arthritis FINDINGS: BONES: No significant spondylosis, scoliosis, fracture, or visible bony lesion. There is mild curvature of the thoracolumbar spine to the left. DISC SPACES: Normal. No significant disc height narrowing, subluxation, or endplate abnormality. PARASPINOUS: Negative. No paraspinous abnormality is seen. OTHER: Negative. CONCLUSION: 1. Mild curvature of the spine to the left. 2. There is no evidence of acute fracture or subluxation. Dictated by: Janis Goldman MD on 01/28/2024 at 17:25 Approved by: Janis Goldman MD on 01/28/2024 at 17:26 Normal [facility] LUMBO SACRAL AP LATon 2023 LUMBO SACRAL AP LAT [address] [address] Patient: BRITTANY MONTEJO Phone#: : 1960 Age: 63 Gender: F Pt. Type: Out Account: [id number] Location: 052 Ordering: TRINO RESENDEZ Exam Date: 01/28/2024/12:26 Family Phys: MART DAVENPORT Charge Code: [id number] Physician: [place] Order #: [id number] Dose#: P mild degenerative changes of the spine are present. ROCEDURE: X-RAY LUMBAR SPINE AP/LAT 2 VIEWS COMPARISON: None. INDICATIONS: Cervicalgia. FINDINGS: BONES: Mild degenerative changes of the spine are present. There is no evidence of acute fracture or subluxation. DISC SPACES: Normal. No significant disc height narrowing, subluxation, or endplate abnormality. PARASPINOUS: Negative. No paraspinous abnormality is seen. OTHER: Negative. CONCLUSION: 1. Dictated by: Janis Goldman MD on 01/28/2024 at 17:27 Approved by: Janis Goldman MD on 01/28/2024 at 17:29 Normal [facility] CV CAROTID STUDYon CV CAROTID STUDY [place] [address] Patient: BRITTANY MONTEJO Phone#: : 1960 Age: 63 Gender: F Pt. Type: Out Account: [id number] Location: 052 Ordering: MART ISSAC Exam Date: 12/02/2023/13:48 Family Phys: Charge Code: [id number] Physician: [place] Order #: [id number] Dose#: PROCEDURE: CAROTID FLOW STUDY COMPARISON: None. INDICATIONS: DIZZINESS TECHNIQUE: Color duplex Doppler ultrasound and pulsed Doppler analysis were performed to evaluate the cervical carotid arteries and vertebral flow. All measurements for carotid artery narrowing or stenosis were obtained using the ipsilateral distal internal carotid artery as the reference value. TOBACCO SORTER: REJI PT HISTORY: Vertigo/dizziness RIGHT IMAGING FINDINGS: CCA: Intimal wall thickening is present. ICA: Intimal wall thickening present. ECA: Intimal wall thickening is present. Vertebral A: Antegrade flow Comments: Category: II. Less than 50% stenosis. ICA PSV less than 180cm/s. Plaque and/or intimal thickening present. LEFT IMAGING FINDINGS: CCA: Intimal wall thickening is present. ICA: Intimal wall thickening present. ECA: Intimal wall thickening is present. Vertebral A: Antegrade flow. Comments: Category: II Less than 50% stenosis. ICA PSV less than 180cm/s. Plaque and/or intimal thickening present. RIGHT VELOCITY RECORDINGS Prox CCA: 85.87 cm/s Prox CCA EDV: 12.79 cm/s Mid CCA: 75.24 cm/s Mid CCA EDV: 12.93 cm/s Distal CCA: 73.29 cm/s Distal CCA EDV: 16.56 cm/s ECA: 89.85 cm/s ECA EDV: 8.93 cm/s Prox ICA: 67.52 cm/s Prox ICA EDV: 18.23 cm/s Continued Report - Page 2 of 2 Patient: BRITTANY MONTEJOHerber Phone#: : 1960 Age: 63 Gender: F Pt. Type: Out Account: [id number] Location: [facility] Ordering: MART DAVENPORT Exam Date: 12/02/2023/13:48 Family Phys: Charge Code: [id number] Physician: [place] Order #: [id number] Dose#: Mid ICA: 78.69 cm/s Mid ICA EDV: 26.60 cm/s Distal ICA: 83.77 cm/s Distal ICA EDV: 24.74 cm/s Vertebral Artery: 62.87 cm/s Vertebral Artery EDV: 21.02 cm/s Subclavian Artery: 129.34 cm/s LEFT VELOCITY RECORDINGS Prox CCA: 83.42 cm/s Prox CCA EDV: 11.56 cm/s Mid CCA: 107.47 cm/s Mid CCA EDV: 13.75 cm/s Distal CCA: 71.43 cm/s Distal CCA EDV: 12.84 cm/s ECA: 75.89 cm/s ECA EDV: 9.86 cm/s Prox ICA: 88.92 cm/s Prox ICA EDV: 18.23 cm/s Mid ICA: 106.53 cm/s Mid ICA EDV: 25.02 cm/s Distal ICA: 82.68 cm/s Distal ICA EDV: 25.81 cm/s Vertebral Artery: 32.37 cm/s Vertebral Artery EDV: 7.25 cm/s Subclavian Artery: 63.84 cm/s ICA/CCA ratio: Right: 1.11 Left: 0.99 CONCLUSION: 1. No hemodynamically significant stenosis Dictated by: Hue Jimenez MD on 12/02/2023 at 15:25 Approved by: Hue Jimenez MD on 12/02/2023 at 15:43 Normal [facility] CBC (NO DIFF)on 07-22-2023 CBC panel Auto (Bld) Normal [facility] Comment on above: Result Comment: CBC( WITHOUT DIFFERENTIAL) Performed By: #### 2 25303 #### [place] [address] Erythrocyte distribution width (RBC) [Ratio] 17.4 % High 12.0 - 15.6 [facility] Comment on above: Performed By: #### 2 78465 #### [facility],[address] [place] [address] Hematocrit (Bld) [Volume fraction] 39.7 % Normal 34.0 - 46.0 [facility] Comment on above: Performed By: #### 2 13253 #### [facility],[address] [place], [place] [phone] Hemoglobin (Bld) [Mass/Vol] 12.7 g/dL Normal 12.0 - 16.0 [facility] Comment on above: Performed By: #### 2 30925 #### [facility],[address] [place] [address] 28787 MCH (RBC) [Entitic mass] 25 pg Low 27 - 33 [facility] Comment on above: Performed By: #### 2 82249 #### [facility],[address] [place] [address] 47863 MCHC 32 X10 3 Normal 32 - 36 [facility] Comment on above: Performed By: #### 2 40192 #### [facility],[address] [place] [address] 18525 MCV (RBC) [Entitic vol] 79 fL Low 80 - 99 [facility] Comment on above: Performed By: #### 2 33020 #### [facility],[address] [place] [address] 33192 PLATELET 321 x10EE3/UL Normal 150 - 450 [facility] Comment on above: Performed By: #### 2 37750 #### [facility],[address] [place] [address] 97867 Platelet mean volume (Bld) [Entitic vol] 8.1 fL Normal 6.6 - 10.5 [facility] Comment on above: Result Comment: {CB] Performed By: #### 2 07930 #### [facility],[address] [place], [place] [id number] RBC 5.01 x 10EE6/UL Normal 4.10 - 5.30 [facility] Comment on above: Performed By: #### 2 77846 #### [facility],[address] [place], [place] [phone] WBC 11.4 x 10EE3/UL High 4.5 - 10.8 [facility] Comment on above: Performed By: #### 2 12077 #### [facility],[address] [place] [address] 61778 CMP with eGFRon 07-22-2023 AGE 62 years Normal [facility] Comment on above: Performed By: #### 2 98844 #### [facility],[address] [place] [address] 25169 Albumin [Mass/Vol] 3.1 g/dL Low 3.4 - 5.0 [facility] Comment on above: Performed By: #### 2 42275 #### [facility],[address] [place], [place] [phone] Albumin/Globulin [Mass ratio] 0.8 {ratio} Low 0.9 - 1.6 [facility] Comment on above: Performed By: #### 2 90651 #### [facility],[address] [place] [address] 64713 ALK PHOS 157 U/L High 46 - 116 [facility] Comment on above: Performed By: #### 2 61330 #### [facility],[address] [place] [address] 55713 ALT [Catalytic activity/Vol] 36 U/L Normal 14 - 59 [facility] Comment on above: Performed By: #### 2 88338 #### [facility],[address] [place] [address] Anion gap [Moles/Vol] 12 mmol/L Normal 10 - 20 [facility] Comment on above: Performed By: #### 2 69632 #### [facility],[address] [place], [place] [phone] AST [Catalytic activity/Vol] 30 U/L Normal 13 - 39 [facility] Comment on above: Performed By: #### 2 39467 #### [facility],[address] [place] [address] 22317 B/C RATIO 17 ratio Normal 0 - 30 [facility] Comment on above: Performed By: #### 2 06663 #### [facility],[address] [place] [address] 79994 Bilirubin [Mass/Vol] 0.3 mg/dL Normal 0.2 - 1.0 [facility] Comment on above: Performed By: #### 2 91731 #### [facility],[address] [place] [address] 04881 Calcium [Mass/Vol] 9.1 mg/dL Normal 8.5 - 10.1 [facility] Comment on above: Performed By: #### 2 84150 #### [facility],[address] [place] [address] 12719 Chloride [Moles/Vol] 100 mmol/L Normal 98 - 107 [facility] Comment on above: Performed By: #### 2 91115 #### [facility],[address] [place] [address] 81462 CMP with eGFR Normal [facility] Comment on above: Result Comment: COMP REHENSIVE METABOLIC PANEL Performed By: #### 2 31770 #### [facility],[address] [place], [place] [phone] CO2 [Moles/Vol] 29.8 mmol/L Normal 21.0 - 32.0 [facility] Comment on above: Performed By: #### 2 21640 #### [facility],[address] [place] [address] Creatinine [Mass/Vol] 0.71 mg/dL Normal 0.55 - 1.02 [facility] Comment on above: Performed By: #### 2 58717 #### [facility],[address] [place], [place] [phone] GFR/1.73 sq M.predicted among non-blacks MDRD (S/P/Bld) [Vol rate/Area] mL/min/{1.73_m2} Normal 60 - 999 [facility] Comment on above: Performed By: #### 2 74326 #### [place] [address] Result Comment: ACCO RDING TO THE NATIONAL KIDNEY DISEASE EDUCATION PROGRAM(NKDE), A NORMAL eGFR IS A VALUE GREATER THAN OR EQUAL TO 60 ML/MIN/1.73 SQ METERS. CHRONIC KIDNEY DISEASE: <60mL/MIN/1.73 SQ METERS KIDNEY FAILURE: <15mL/MIN/1.73 SQ METERS THIS TEST SHOULD ONLY BE USED FOR PATIENTS 18 YEARS OF AGE AND OLDER. Globulin (S) [Mass/Vol] 3.9 g/dL High 1.5 - 3.8 [facility] Comment on above: Performed By: #### 2 17121 #### [facility],[address],[place] [address] Glucose [Mass/Vol] 77 mg/dL Normal 74 - 106 [facility] Comment on above: Performed By: #### 2 90335 #### [facility],[address] [place] [address] 95390 Potassium [Moles/Vol] 4.6 mmol/L Normal 3.5 - 5.1 [facility] Comment on above: Performed By: #### 2 61722 #### [facility],[address] [place] [address] 01822 Protein [Mass/Vol] 7.0 g/dL Normal 6.4 - 8.2 [facility] Comment on above: Performed By: #### 2 59249 #### [facility],[address] [place] [address] 45621 Sodium [Moles/Vol] 137 mmol/L Normal 136 - 145 [facility] Comment on above: Performed By: #### 2 53957 #### [facility],[address] [place] [address] 99303 Urea nitrogen [Mass/Vol] 12 mg/dL Normal 7 - 18 [facility] Comment on above: Performed By: #### 2 17118 #### [facility],[address] [place] [address] 71523 IRONon 07-22-2023 Iron [Mass/Vol] 27 ug/dL Low 50 - 170 [facility] Comment on above: Performed By: #### 2 80801 #### [facility],[address] [place] [address] 66310 LIPID PROFILEon 07-22-2023 Cholesterol [Mass/Vol] 162 mg/dL Normal 0 - 240 [facility] Comment on above: Performed By: #### 2 72740 #### [facility],[address] [place] [address] 64952 Cholesterol in HDL [Mass/Vol] 47 mg/dL Normal 40 - 60 [facility] Comment on above: Performed By: #### 2 76612 #### [facility],[address] [place] [address] 43800 Cholesterol in LDL [Mass/Vol] 96 mg/dL Normal 0 - 129 [facility] Comment on above: Performed By: #### 2 78919 #### [facility],[address] [place] [address] 42079 Cholesterol.total/C holesterol in HDL [Mass ratio] 3.4 {ratio} Normal 0.0 - 5.0 [facility] Comment on above: Performed By: #### 2 14591 #### [facility],[address] [place] [address] 88257 Lipid 1996 panel Normal [facility] Comment on above: Result Comment: LIPI D PROFILE Performed By: #### 2 16570 #### [facility],[address] [place] [address] 53698 Triglyceride [Mass/Vol] 93 mg/dL Normal 0 - 150 [facility] Comment on above: Performed By: #### 2 30012 #### [facility],[address] [place] [address] 94280 T4-FREE (FREE THYROXINE)on 1 Free T4 [Mass/Vol] 1.01 ng/dL Normal 0.76 - 1.46 [facility] Comment on above: Result Comment: P otential of falsely elevated results when biotin concentrations are > 10 ng/mL. Performed By: #### 2 86033 #### [facility],[address] [place] [address] 63748 TSHon 07-22-2023 TSH Qn 2.51 m[IU]/L Normal 0.35 - 3.74 [facility] Comment on above: Performed By: #### 2 23299 #### [facility],[address] [place] [address] 02169 URINALYSISon 07-22-2023 Amorphous NONE Normal [facility] Comment on above: Performed By: #### 2 96823 #### [facility],[address] [place] [address] 20299 Bacteria TRACE Normal [facility] Comment on above: Performed By: #### 2 94553 #### [facility],[address] [place] [address] 92038 Bilirubin Ql (U) Negative Normal NORMAL: NEGATIVE [facility] Comment on above: Performed By: #### 2 49839 #### [facility],[address] [place], [place] [phone] Casts NONE Normal [facility] Comment on above: Performed By: #### 2 63635 #### [facility],[address] [place] [address] Clarity (U) clear Normal NORMAL: CLEAR [facility] Comment on above: Performed By: #### 2 11943 #### [facility],[address] [place], [place] [phone] Color (U) p.yel Normal NORMAL: YELLOW [facility] Comment on above: Performed By: #### 2 71251 #### [facility],[address] [place] [address] 72921 Crystals LM Nom (Urine sed) NONE Normal [facility] Comment on above: Performed By: #### 2 46184 #### [facility],[address] [place] [address] 44896 Epi Cells FEW Normal [facility] Comment on above: Performed By: #### 2 38439 #### [facility],[address] [place] [address] 67357 Glucose Ql (U) NORM Normal NORMAL: NORMAL [facility] Comment on above: Performed By: #### 2 54863 #### [facility],[address] [place] [address] 77889 Hemoglobin Ql (U) 25 Abnormal NORMAL: NEGATIVE [facility] Comment on above: Performed By: #### 2 16792 #### [facility],[address] [place], [place] [phone] Ketone Negative Normal NORMAL: NEGATIVE [facility] Comment on above: Performed By: #### 2 29974 #### [facility],[address] [place], [place] [phone] Leukocytes 25 Abnormal NORMAL: NEGATIVE [facility] Comment on above: Performed By: #### 2 97825 #### [facility],[address] [place] [address] Mucous NONE Normal [facility] Comment on above: Performed By: #### 2 14557 #### [facility],[address] [place] [address] Nitrite Ql (U) Negative Normal NORMAL: NEGATIVE [facility] Comment on above: Performed By: #### 2 74916 #### [facility],[address] [place] [address] pH (U) 7 [pH] Normal NORMAL: 5.0-8.0 [facility] Comment on above: Performed By: #### 2 97296 #### [facility],[address] [place] [address] Protein Ql (U) Negative Normal NORMAL: NEGATIVE [facility] Comment on above: Performed By: #### 2 18561 #### [facility],[address] [place], [place] [phone] Rbc 0-5 Normal 0-3/hpf [facility] Comment on above: Performed By: #### 2 25812 #### [facility],[address] [place], [place] [phone] Sp [place] 1.010 Normal NORMAL: 1.010-1.030 [facility] Comment on above: Performed By: #### 2 75577 #### [facility],[address] [place], [place] [phone] Specimen Type R Normal [facility] Comment on above: Performed By: #### 2 29604 #### [facility],[address] [place], [place] [phone] Urinalysis dipstick W Reflex Microscopic panel (U) SEE BELOW Normal [facility] Comment on above: Result Comment: MICR OSCOPIC Performed By: #### 2 48760 #### [facility],[address] [place] [address] Urobilinog NORM Normal NORMAL: NORMAL [facility] Comment on above: Performed By: #### 2 74745 #### [facility],[address] [place] [address] Wbc 1-5 Normal 0-5/hpf [facility] Comment on above: Performed By: #### 2 87886 #### [facility],[address] [place] [address] Yeast NONE Normal [facility] Comment on above: Performed By: #### 2 47790 #### [facility],[address] [place] [address] HbA1c (Bld)on 01-06-2023 Average glucose Estimated from glycated hemoglobin (Bld) [Mass/Vol] 120 mg/dL Normal [facility] Comment on above: Order Comment: Daphnie magana Type: BLOOD SPECIMEN Ordering Facility: [facility] Address: [address] [place] [address] Result Comment: eAG: (Estimated average glucose) is a calculated value from HgbA1c and is technical support representative of the average blood glucose level in the last 2-3 month period. Performed By: #### 5 5454-3 #### [facility] CLIA [id number] [address] [place] [address] [place] HbA1c (Bld) [Mass fraction] 5.8 % High 4.3-5.6 [facility] Comment on above: Order Comment: Daphnie magana Type: BLOOD SPECIMEN Ordering Facility: [facility] Address: [address] [place] [address] Result Comment: Amer ican Diabetes Association guidelines indicate that patients with HgbA1c in the range 5.7-6.4% are at increased risk for development of diabetes, and intervention by lifestyle modification may be beneficial. HgbA1c greater or equal to 6.5% is considered diagnostic of diabetes. Performed By: #### 5 5454-3 #### [facility] CLIA [id number] [facility] [place] [address] [place] T3Free SerPl-mCncon 09-10-20 22 Free T3 [Mass/Vol] 2.1 pg/mL Low 2.3-4.1 [facility] Comment on above: Order Comment: Daphnie izzy Type: BLOOD SPECIMEN Ordering Facility: [facility] Address: [address] [place] [address] Performed By: #### B WB, #### [facility] CLIA [id number] [address] [place] [address] [place] VITAMIN B1 (THIAMINE), WHOLE BLOODon 09-10-2022 Thiamine (Bld) [Moles/Vol] 189.0 nmol/L Normal 84.3-213.3 [facility] Comment on above: Order Comment: Daphnie magana Type: BLOOD SPECIMEN Ordering Facility: [facility] Address: [address] [place] [address] Result Comment: This assay measures the concentration of thiamine diphosphate (TDP), the primary active form of vitamin B1. Approximately 90 percent of vitamin B1 present in whole blood is TDP. Thiamine and thiamine monophosphate, which comprise the remaining 10 percent, are not measured. This test was developed and its performance characteristics determined by [facility] [place] ([facility]). It has not been cleared or approved by the FDA. [facility] is regulated under CLIA as qualified to perform high-complexity testing. This test is used for clinical purposes. It should not be regarded as investigational or for research. Performed By: #### B 1WB, 0 #### [facility] CLIA [id number] [address] [place] [address] [place] HbA1c (Bld)on 08-27-2022 Average glucose Estimated from glycated hemoglobin (Bld) [Mass/Vol] 108 mg/dL Normal [facility] Comment on above: Order Comment: Douglascali izzy Type: BLOOD SPECIMEN Ordering Facility: [facility] Address: [facility] [place] [address] Result Comment: eAG: (Estimated average glucose) is a calculated value from HgbA1c and is technical support representative of the average blood glucose level in the last 2-3 month period. Performed By: #### 5 5454-3 #### [facility] CLIA [id number] [address] [place] [address] [place] [facility] HbA1c (Bld) [Mass fraction] 5.4 % Normal 4.3-5.6 [facility] Comment on above: Order Comment: Daphnie izzy Type: BLOOD SPECIMEN Ordering Facility: [facility] Address: [facility] [place] [address] Result Comment: Amer ican Diabetes Association guidelines indicate that patients with HgbA1c in the range 5.7-6.4% are at increased risk for development of diabetes, and intervention by lifestyle modification may be beneficial. HgbA1c greater or equal to 6.5% is considered diagnostic of diabetes. Performed By: #### 5 5454-3 #### [facility] CLIA [id number] [address] [place] [address] [place] Encounters Encounter Date Encounter Type Care Provider Facility Start: 07-10-2024 End: 07-10-2024 ambulatory DONALD Macedo [facility] Start: 06-30-2024 End: 06-30-2024 ambulatory MART Macedo [facility] Start: 06-22-2024 End: 06-22-2024 ambulatory MART Macedo [facility] Start: 06-19-2024 End: 06-19-2024 ambulatory MART Macedo [facility] Start: 05-29-2024 End: 05-29-2024 ambulatory MART Macedo [facility] Start: 05-09-2024 End: 05-09-2024 ambulatory YASSER MD [facility] Start: 02-15-2024 End: 02-15-2024 ambulatory MART DAVENPORT [facility] Start: 02-11-2024 End: 02-11-2024 ambulatory TRINO RESENDEZ [facility] Start: 01-28-2024 End: 01-28-2024 ambulatory TRINO RESENDEZ [facility] Start: 12-02-2023 End: 12-02-2023 ambulatory MART SAHA FRED [facility] Start: 07-22-2023 End: 07-22-2023 ambulatory MART SAHA [facility] Procedures Date Procedure Procedure Detail Performing Clinician Start: 05-29-2024 Urinalysis TRINO RESENDEZ Comment on above: Result Comment: URIN ALYSIS Performed By: #### 2 16587 #### [facility],[address] [place] [address] Start: 07-22-2023 Urinalysis TRINO RESENDEZ Comment on above: Result Comment: URIN ALYSIS Performed By: #### 2 26665 #### [facility],[address] [place] [address] Payers Date Payer Category Payer Unknown [id number] 2.16.8 [id number] 1960 Unknown [id number] 2.16.8 [id number] 1962 Unknown [id number] 2.16.8 [id number] 1962 Unknown [id number] 2.16.8 [id number] 1962 Unknown [id number] 2.16.8 [id number] 1962 Unknown [id number] 2.16.8 [id number] 1962 Unknown [id number] 2.16.8 [id number] 1962 Unknown [id number] 2.16.8 [id number] 1962 Unknown [id number] 2.16.8 [id number] 1962 Unknown [id number] 2.16.8 [id number] 1962 Unknown [id number] 2.16.8 [id number] 1962 Unknown [id number] 2.16.8 [id number] Private Health Insurance [id number] Private Health Insurance [id number] Clinical Note 09-09-2022 Note Date & Type Note Facility 09-09-2022 Note . MICRO - Microbiology PROCEDURE: Blood Culture (bacterial) [*1] SOURCE: Blood BODY SITE: COLLECTED DATE/TIME: 09/04/2022 04:20 EST RECEIVED DATE/TIME: 09/04/2022 16:51 EST START DATE/TIME: 09/04/2022 16:51 EST FREE TEXT SOURCE: FINAL REPORTS Final Report [] Verified Date/Time/Personnel: 09/09/2022 16:59 EST Blood Culture: No Growth at 5 days. PRELIMINARY REPORTS Preliminary Report [] Verified Date/Time/Personnel: 09/04/2022 17:59 EST Culture has been received in lab and is no growth to date. Routine cultures are held for 5 days. Performing Locations *1: This test was performed at: [facility], [address] [place] [address], [facility] ([place]) Clinical Note 09-09-2022 Note Date & Type Note Facility 09-09-2022 Note . MICRO - Microbiology PROCEDURE: Blood Culture (bacterial) [O1 *1] SOURCE: Blood BODY SITE: COLLECTED DATE/TIME: 09/04/2022 04:27 EST RECEIVED DATE/TIME: 09/04/2022 15:53 EST START DATE/TIME: 09/04/2022 15:54 EST FREE TEXT SOURCE: FINAL REPORTS Final Report [] Verified Date/Time/Personnel: 09/09/2022 15:59 EST Blood Culture: No Growth at 5 days. PRELIMINARY REPORTS Preliminary Report [] Verified Date/Time/Personnel: 09/04/2022 16:59 EST Culture has been received in lab and is no growth to date. Routine cultures are held for 5 days. Order Comments O1: Blood Culture (bacterial) fax # [phone] Performing Locations *1: This test was performed at: [facility], [address] [place] [address], [facility] , [facility] ([place]) Summary Purpose Family History No Family History Records FoundNo Family History Records FoundNo Family History Records Found Advance Directives No Advanced Directives Records FoundNo Advanced Directives Records FoundNo Advanced Directives Records Found Additional Source Comments INFORMATION SOURCE (unrecogn ized section and content) DATE CREATED AUTHOR 09/10/2022 [facility] ([place]) DATE CREATED AUTHOR AUTHOR'S ORGANIZ ATION 01/12/2023 [facility] DATE CREATED AUTHOR AUTHOR'S ORGANIZ ATION 07/11/2024 [facility] FOR RECORDS PERTAINING TO PATIENTS WHO ARE OR HAVE BEEN ENROLLED IN A CHEMICAL DEPENDENCY/SUBSTANCEABUSE PROGRAM, SOME INFORMATION MAY BE OMITTED. This clinical summary was aggregated from multiple sources. Caution should be exercised in using it in the provision of clinical care. This summary normalizes information from multiple sources, and as a consequence, information in this document may materially change the coding, format and clinical context of patient data. In addition, data may be omitted in some cases. CLINICAL DECISIONS SHOULD BE BASED ON THE PRIMARY CLINICAL RECORDS. [employer] [facility]. provides no warranty or guarantee of the accuracy or completeness of information in this document.
== END 2024-07-31 23:59 | disposition home or self-care (01) ==
PROVIDERS: PCP Internal Medicine Infectious Disease; Referring Provider Otolaryngology; Visit Provider Otolaryngology
DX: C79.2 Secondary malignant neoplasm of skin (principal)
CPT/HCPCS: 10021; 88161; 88305; 88341; 88342

== ENCOUNTER → 2024-08-15 | Outpatient (CLI) | payer OTHER, SELFPAY ==
--- NOTE | 2024-08-15 09:00 | PET_ITS ---
EXAMINATION: FDG-PET/CT ? INDICATIONS: 63-year-old female with a history of cutaneous squamous cell carcinoma, presenting for initial staging examination. ? COMPARISON EXAMINATION: None available ? INDEX LESION SIZE SUV INTERPRETATION Left supraclavicular region 17.1 mm 8.0 Fulfills quantitative criteria for viable neoplasm ? Abdominal retroperitoneum 20.7 mm 3.4 Fulfills quantitative criteria for viable neoplasm ? TECHNIQUE: Following the intravenous administration of 14.62 mCi of F-18 deoxyglucose via the left antecubital fossa, multiplanar image acquisitions of the head, neck, chest, abdomen and pelvis to the level of the midthigh, obtained at one-hour post radiopharmaceutical administration contemporaneously interpreted with the current CT of the chest, abdomen and pelvis dated 08/15/2024 via coregistration reveal: ? SERUM GLUCOSE LEVEL:? 76 mg/dL? HEIGHT:?? 62 inches WEIGHT:?? 124 pounds ? FINDINGS: ? HEAD/NECK:? There is no evidence of abnormal increased glucose metabolism in the pharyngeal mucosal space, parapharyngeal space, oropharynx, bilateral-lateral and anterior neck, hypopharynx and distribution of the larynx. There is facilitated uptake noted in the anterior neck, laryngeal structures associated with the cricoid cartilage, cricopharyngeus musculature, most consistent with physiologic tracer uptake. ? The visualized portion of the cerebral cortical-subcortical structures demonstrate symmetric and preserved glucose metabolism. ? CHEST:? Asymmetric increased tracer uptake is noted in the left supraclavicular region generating a calculated standard uptake value of 8.0. The maximal axial diameter of the metabolic, morphologic abnormality is 17.1 mm AP. There is prominent uptake noted in the descending thoracic aorta commensurate with activated leukocytes associated with atherosclerotic plaque formation. ? CT of the chest demonstrates the following anatomic characteristics: A right hemithorax pleural effusion is nonglucose avid. There are no parenchymal densities-nodules defined in the right and left hemithorax with quantitatively significant increased FDG uptake. Coronary artery calcification is observed. Atherosclerotic calcification is defined in the thoracic aorta without evidence of dilatation, aneurysm formation. ? ABDOMEN/PELVIS:? Facilitated uptake is multifocally apparent in the abdominal retroperitoneum in the region of the right and left lateral aortic lymph node basin. The calculated standard uptake value is 3.4. The largest corresponding soft tissue density demonstrates a maximal axial diameter of 20.7 mm. Normal physiologic distribution of the radiopharmaceutical is identified in the hepatic (2.5) and splenic parenchyma, both renal units, urinary bladder, and visualized intestinal tract. ? CT of the abdomen and pelvis is remarkable for the following: Mesenteric soft tissue densities demonstrate no evidence of increased tracer uptake. Calcification is defined within the retained uterus without evidence of increased radiopharmaceutical concentration. Occasional colonic diverticulosis is noted. ? SKELETAL:? There is no evidence of quantitatively significant enhanced glucose metabolism on meticulous inspection of the appendicular and axial skeletal structures. ? Degenerative changes defined in the thoracic and lumbar spine demonstrate no evidence of increased glucose metabolism. There are no sclerotic, mixed sclerotic-lytic, or primarily lytic changes defined in the axial skeletal structures with evidence of increased FDG uptake. ? PET/PET/CT Tumor Base -Thigh Init IMPRESSION: 1. ABNORMAL EXAMINATION INDICATIVE OF MALIGNANT-VIABLE NEOPLASM. 2. Increased tracer uptake noted in the left supraclavicular region fulfills quantitative criteria for viable neoplasm. 3. Enhanced labeled glucose visualized in the abdominal retroperitoneum fulfills quantitative criteria for viable malignant involvement. Electronic Signature Stevan Muñoz D.O. Accurate Quantification of SUVs for this report are calculated using the exclusive [employer]. ([place] Patent No. [id number] B2 [phone] [place] patent [phone]). Standardization and correction of the FDG SUV metric via [employer] technology allow for vendor non-specific objective quantitative examination comparison and optimization of the sensitivity and specificity of the FDG PET-CT examination. [email or web address] Electronically Signed: Stevan Muñoz DO at 6:48 EST ,
== END | disposition home or self-care (01) ==
PROVIDERS: PCP Internal Medicine Infectious Disease; Referring Provider Otolaryngology; Visit Provider Otolaryngology
DX: C44.42 Squamous cell carcinoma of skin of scalp and neck (principal)
CPT/HCPCS: 78815; A9552